=== PATIENT | female | born 1990 | race Caucasian/White ===

== ENCOUNTER 2021-05-09 13:04 | Emergency (ER) | payer MEDICAID, OTHER, SELFPAY ==
[2021-05-09] VITALS (7 sets, daily range): BP systolic 108–158; BP diastolic 68–98; PULSE 99–140; RESP 16–22; TEMP 37.5; O2SAT 96–100; BMI 31.4
--- NOTE | 2021-05-09 | ECG_ITS ---
Test Reason : DYSRYTHMIA Blood Pressure : / mmHG Vent. Rate : 125 BPM Atrial Rate : 125 BPM P-R Int : 150 ms QRS Dur : 074 ms QT Int : 304 ms P-R-T Axes : 054 033 018 degrees QTc Int : 438 ms Sinus tachycardia Abnormal ECG No previous ECGs available Referred By: Rea Palma Electronically Signed By:ALVIN LAST
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
[2021-05-09 16:52] LABS: Appearance Urine CLOUDY; Color Urine YELLOW; Glucose Urine UA NEG (NEG); Leukocyte Esterase Urine 2+ (NEG); Nitrite Urine NEG (NEG); Specific Gravity - Urine 1.025 (1.005-1.025); UACC Culture Trigger YES; Urine Blood TRACE (NEG); Urine Ketones 40 MG/DL (NEG); Urine Protein 2+ MG/DL (NEG-TRACE)
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
[2021-05-09 17:01] LABS: Bacteria Urine 2+ /LPF; Mucus Urine 1+ /LPF; Squamous Epithelial Cell Urine 2+ /LPF; WBC Urine 30-49 /HPF (0-4)
[2021-05-09 17:08] LABS: Amphetamine Screen Urine Not Detected (Not Detect); Barbiturates, Urine Not Detected (Not Detect); Benzodiazepines Screen Urine Not Detected (Not Detect); Cannabinoid Screen Urine Not Detected (Not Detect); Cocaine Screen Urine Not Detected (Not Detect); Fentanyl, urine Not Detected (Not Detect); Opiate Screen Urine Not Detected (Not Detect); Phencyclidine Screen Urine Not Detected (Not Detect)
[2021-05-09] MEDS: 0.9 % Sodium Chloride 1,000 ML 999 ML IVCONT (18:09)
[2021-05-09] MEDS: LORazepam 2 MG/ML VIAL IVPUSH (18:09)
[2021-05-09] MEDS: ondansetron HCL 4 MG/2 ML VIAL IVPUSH (18:09)
[2021-05-09 19:05] LABS: Basophils Percent Auto 0.2 % (0-2); Hematocrit 38.6 % (37-47); Hemoglobin 13.4 g/dl (12.0-16.0); Imm Gran Abs Auto 0.02 X10*3/uL (0.00-0.03); Imm Gran Pct Auto 0.2 % (0.0-0.4); Lymphocytes Absolute Auto 1.2 X10*3/uL (1.2-4.9); Lymphocytes Percent Auto 10.4 % (20-40); MANUAL DIFF FLAG NO; Mean Corpuscular HGB Conc 34.7 g/dl (31.0-35.0); Mean Corpuscular Hemoglobin 31.8 pg (27.0-33.0); Mean Corpuscular Volume 91.7 fL (80-98); Mean Platelet Volume 9.4 fL (9.4-12.3); Monocytes Absolute Auto 0.5 X10*3/uL (0.1-1.2); Monocytes Percent Auto 3.9 % (2-11); Neutrophils Absolute Auto 9.9 X10*3/uL (2.0-8.3); Neutrophils Percent Auto 85.3 % (45-73); Platelet Count 184 X10*3/uL (160-400); Red Blood Count 4.21 X10*6/uL (4.20-5.50); Red Cell Distribution Width 11.8 % (11.0-16.0); White Blood Count 11.6 X10*3/uL (4.8-10.8)
[2021-05-09 19:20] LABS: Ethanol < 10 mg/dL
[2021-05-09 19:24] LABS: Alanine Aminotransferase 17 U/L (0-31); Albumin Level 4.7 g/dL (3.5-5.0); Alkaline Phosphatase 124 U/L (39-117); Anion Gap 16 (12-20); Aspartate Amino Transferase 23 U/L (5-31); Bilirubin Direct 0.4 mg/dL (0.0-0.5); Bilirubin Total 0.9 mg/dL (0.0-1.0); Blood Urea Nitrogen 8 mg/dL (9-16); Calcium 9.8 mg/dL (8.4-10.2); Carbon Dioxide 22 mmol/L (22-29); Chloride 106 mmol/L (96-108); Creatinine Clr Calc Pharmacy 53.8; Estimated Glomerular Filt Rate 41; Glucose Random 118 mg/dL (60-115); Lipase 21 U/L (8-78); Magnesium 2.3 mg/dL (1.6-2.6); Potassium 3.6 mmol/L (3.3-5.1); Sodium 140 mmol/L (135-145); Total Protein 7.9 g/dL (6.5-8.0)
[2021-05-09 19:31] LABS: HCG Quantitative < 2 mIU/mL
[2021-05-09 19:35] LABS: COVID-19 Test Negative (Negative); IDNOW Serial# 9DD0AD1C
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
--- NOTE | 2021-05-09 20:35 | PC.NURSE ---
pt family requested to speak with RN. requesting pt be held in the hospital until the AM as pt family want to section 35 her. t/w informed the family that we cannot hold the pt, if she wants to leave she has the right to leave but that the pt will need a ride home and we can call the family to pick her up.
--- NOTE | 2021-05-09 20:36 | PC.NURSE ---
pt resting with eyes closed at this time
[2021-05-09 20:47] LABS: Acetaminophen LAB < 1 mcg/mL (<30); Salicylate < 5.0 mg/dL (15-30)
[2021-05-09] MEDS: Thiamine HCL 100 MG in 0.9 % Sodium Chloride 100 ML 202 MG IV (21:00)
[2021-05-09] MEDS: Magnesium Sulfate/H2O 2 GM/50 ML PIGGYBACK IV (21:40)
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
[2021-05-09] MEDS: Acetaminophen 325 MG TABLET 650 MG PO (23:25)
[2021-05-09] MEDS: LORazepam 1 MG TABLET 2 MG PO (23:25)
--- NOTE | 2021-05-09 23:26 | PC.NURSE ---
Medicated per OCT. VSS, pt remains tachycardic @ 130 bpm.
[2021-05-10 00:14] VITALS: BP 144/85; PULSE 109; RESP 16; TEMP 37.3; O2SAT 98
[2021-05-10 00:24] LABS: Lactic Acid 0.7 mmol/L (0.5-2.0)
[2021-05-10] MEDS: cefTRIAXone sodium 1 GM in 0.9 % Sodium Chloride 50 ML IV (00:24)
[2021-05-10] MEDS: LORazepam 2 MG/ML VIAL 1 MG IVPUSH (00:34)
--- NOTE | 2021-05-10 00:37 | PC.NURSE ---
Pt medicated per MAR, resting in bed.
[2021-05-10 04:48] LABS: CT PCR NOT DETECTED (Not Detect.); NG PCR NOT DETECTED (Not Detect.)
[2021-05-10 05:10] VITALS: BP 144/95; PULSE 112; RESP 16; O2SAT 96
[2021-05-10 06:16] VITALS: BP 123/84; PULSE 107; RESP 16; O2SAT 97
--- NOTE | 2021-05-10 06:17 | PC.NURSE ---
Pt sleeping through the night without difficulty. VSS remain stable at this time. [facility] referral process complete.
--- NOTE | 2021-05-10 11:40 | PC.NURSE ---
Report to Jayleen JACKSON
[2021-05-10] MEDS: metroNIDAZOLE 500 MG TABLET PO (11:41)
--- NOTE | 2021-05-10 16:31 | MHC.CARE ---
CARE team met with pt's family. Sect 35 petition approved, plan is for her to be picked up by [employer] on warrant in the morning. Family requesting to take pt home. She was cleared by crisis earlier in the day and requires no further assessment or treatment at this time.
== END 2021-05-10 17:15 | disposition home or self-care (01) ==
PROVIDERS: Emergency Medicine; Emergency Provider Emergency Medicine Emergency Medical Services
DX: F41.1 Generalized anxiety disorder (principal); R00.2 Palpitations; F10.129 Alcohol abuse with intoxication, unspecified; T76.21XA Adult sexual abuse, suspected, initial encounter; Y90.9 Presence of alcohol in blood, level not specified; Z20.822 Contact with and (suspected) exposure to COVID-19; Z79.899 Other long term (current) drug therapy; Z20.2 Contact with and (suspected) exposure to infections with a predominantly sexual mode of transmission
CPT/HCPCS: 36415; 80048; 80076; 80143; 80179; 80307; 81001; 82077; 83605; 83690; 83735; 84702; 85025; 87040; 87086; 87088; 87186; 87491; 87591; 87635; 93005; 96361; 96365; 96366; 96367; 96372; 96375; 96376; 99285; J0696; J2060; J2405; J3411; J3475